=== PATIENT | female | born 1985 | race Two or more races ===

== ENCOUNTER 2025-04-01 08:45 | Outpatient (CLI) | payer OTHER ==
[~2025-04-01] VITALS: Ht 165.1 cm; Wt 90.9 kg
[~2025-04-01 08:45] MED LIST: ALBUTEROL SULFATE 2.5 MG/0.5 ML INH CONCENTRATE NEB SOLN INH PRN; EPINEPHrine INJ 1 MG/ML 1ML AMP IM PRN; diphenhydrAMINE 50 MG/ML VIAL IV PRN
[2025-04-01 08:55] VITALS: BP 135/70; O2SAT 100
[2025-04-01] MEDS: FERRIC CARBOXYMALTOSE 750 MG (VIAL MATE) IN 100ML NS IV ONE (09:44)
[2025-04-01 10:29] VITALS: BP 126/65; O2SAT 100
== END 2025-04-01 10:30 | disposition home or self-care (01) ==
LOC: M INFU 08:45
PROVIDERS: ATTEND Student in an Organized Health Care Education/Training Program
DX: D50.9 Iron deficiency anemia, unspecified (principal)
CPT/HCPCS: 96365; J1439

== ENCOUNTER 2025-04-08 07:59 | Outpatient (CLI) | payer OTHER ==
[~2025-04-08] VITALS: Ht 165.1 cm; Wt 90.9 kg
[2025-04-08 08:10] VITALS: BP 109/53; O2SAT 99
[2025-04-08] MEDS: FERRIC CARBOXYMALTOSE 750 MG (VIAL MATE) IN 100ML NS IV ONE (08:27)
[2025-04-08 08:57] VITALS: BP 111/54; O2SAT 100
== END 2025-04-08 09:00 | disposition home or self-care (01) ==
LOC: M INFU 07:59 → EDUNIT# 09:00
PROVIDERS: ATTEND Student in an Organized Health Care Education/Training Program
DX: D50.9 Iron deficiency anemia, unspecified (principal)
CPT/HCPCS: 96365; J1439